=== PATIENT | female | born 1955 | race Caucasian/White ===

== ENCOUNTER → 2022-08-18 09:18 | Outpatient (BNVA) | payer MEDICARE, SELFPAY | PROVIDERS: Family Provider Family Medicine; PCP Family Medicine Adult Medicine; Visit Provider Family Medicine Adult Medicine | DX: I10 Essential (primary) hypertension (principal); Z68.41 Body mass index [BMI] 40.0-44.9, adult; E03.9 Hypothyroidism, unspecified; Z86.32 Personal history of gestational diabetes; M10.9 Gout, unspecified; G25.81 Restless legs syndrome; G47.33 Obstructive sleep apnea (adult) (pediatric); Z99.89 Dependence on other enabling machines and devices; G56.21 Lesion of ulnar nerve, right upper limb; M62.89 Other specified disorders of muscle; Z91.89 Other specified personal risk factors, not elsewhere classified; F41.9 Anxiety disorder, unspecified; F32.A Depression, unspecified; M19.90 Unspecified osteoarthritis, unspecified site; N39.46 Mixed incontinence | CPT/HCPCS: 80053; 80061; 83036; 84443; 85025 ==

== ENCOUNTER 2022-09-21 15:21 | Outpatient (RCR) | payer MEDICARE, SELFPAY | END 2022-10-10 23:59 | disposition home or self-care (01) | LOC: SPT 15:21 | PROVIDERS: Visit Provider Orthopaedic Surgery | DX: Z47.1 Aftercare following joint replacement surgery (principal); Z96.652 Presence of left artificial knee joint | CPT/HCPCS: 97110; 97161 ==

== ENCOUNTER 2022-10-11 06:00 | Outpatient (RCR) | payer MEDICARE, SELFPAY | END 2022-10-24 23:59 | disposition home or self-care (01) | LOC: SPT 06:00 | PROVIDERS: PCP Family Medicine Adult Medicine; Visit Provider Orthopaedic Surgery | DX: Z47.1 Aftercare following joint replacement surgery (principal); Z96.652 Presence of left artificial knee joint | CPT/HCPCS: 97110 ==

== ENCOUNTER → 2022-11-03 12:38 | Outpatient (BNVA) | payer MEDICARE, SELFPAY | PROVIDERS: PCP Family Medicine Adult Medicine; Visit Provider Surgery | DX: K21.9 Gastro-esophageal reflux disease without esophagitis (principal); Z12.11 Encounter for screening for malignant neoplasm of colon | CPT/HCPCS: 99203 ==

== ENCOUNTER 2023-01-12 05:39 | Day surgery (SDC) | payer MEDICARE, SELFPAY ==
[2023-01-12 06:19] VITALS: BMI 42.9
[2023-01-12 06:23] VITALS: BP 135/81; PULSE 89; RESP 18; TEMP 36.1; O2SAT 97
--- NOTE | 2023-01-12 06:34 | W.PM.OPSFHP ---
Same Day Surgery H&P Indication for Procedure/HPI DATE OF PROCEDURE: January 12, 2023 CHIEF COMPLAINT/INDICATIONFOR SURGICAL PROCEDURE: reflux PREOP DIAGNOSIS: GERD and encounter for screening of colorectal cancer PLANNED PROCEDURE: Operation Date: 01/12/23 07:00 Proposed Procedures p [id number] egd [id number] colon K21.9,Z12.11(Not Applicable) - Phani Islas MD s Colonoscopy(Not Applicable) - Phani Islas MD Medications/Allergies* Allergies/Adverse Reactions Allergy/AdvReac Type Severity Reaction Status Date / Time No Known Allergies Allergy Unverified 01/10/23 09:26 Pertinent History/Comorbid Conditions* Medical History (Updated 12/02/22 @ 14:06 by Kurt Chaudhry MD) Allergic rhinitis due to allergen Anxiety and depression At high risk for complicated grieving BMI 40.0-44.9, adult Chronic GERD CPAP (continuous positive airway pressure) dependence Cubital tunnel syndrome on right Dyslipidemia Gout HTN (hypertension) with goal to be determined Hypothyroid Left otitis externa MICHELLE (obstructive sleep apnea) Osteoarthritis Participant in health and wellness plan Pre-diabetes Psoas syndrome RLS (restless legs syndrome) Urinary incontinence, mixed Surgical History (Updated 12/02/22 @ 11:42 by Kutr Chaudhry MD) H/O neck surgery H/O thyroidectomy H/O: knee surgery History of back surgery History of carpal tunnel surgery History of cholecystectomy Hx of colonoscopy Hx of hysterectomy Social History Smoking and tobacco/nicotine status: never used tobacco/nicotine Second hand smoke exposure: No Alcohol intake: current Alcohol intake frequency: holidays/special occasions only Alcohol type: other Substance/Drug Use: never Pertinent Exam Findings alert, oriented x 3, clear to auscultation bilaterally and regular rate & rhythm Recommendations Surgery/Procedure today Coding Level of Care Code Acute Code for Chg Fwd Diagnoses
[2023-01-12] MEDS: sodium chloride 0.9% 1,000 ML 30 ML IV (06:41)
--- NOTE | 2023-01-12 06:49 | P.ANESASSM_ITS ---
Pre-Anesthetic Assessment Height/Weight: Height 1.63 m Weight 113.398 kg Temp Pulse Resp BP Pulse Ox O2 Del Method 97.0 F L 89 18 135/81 97 Room Air 01/12/23 06:23 01/12/23 06:23 01/12/23 06:23 01/12/23 06:23 01/12/23 06:23 01/12/23 06:23 Preop Diagnosis: GERD and encounter for screening of colorectal cancer Operation Date: 01/12/23 07:00 Proposed Procedures p [id number] egd [id number] colon K21.9,Z12.11(Not Applicable) - Phani Islas MD s Colonoscopy(Not Applicable) - Phani Islas MD Familial anesthetic complications: N/V Was Beta Pooja taken within 24 hours: N/A Was Clonidine taken within 24 hours: N/A Last intake: Intake Last Liquid Date 01/11/23 Last Liquid Time 23:00 Last Solid Date 01/10/23 Last Solid Time 18:00 Social No alcohol and No tobacco Exam alert, oriented x 3, clear to auscultation bilaterally and regular rate & rhythm Airway Submandibular: within normal limits Cervical ROM: within normal limits Mallampati: Class II Dentition: false History/ROS No significant history except as noted and No significant complaints Pulmonary Sleep Apnea (Uses CPAP) CV/HEM Hypertension Previously blocked ureter Hepatic None reported GI Gastroesophageal Reflux Disease Metabolic Morbid Obesity and Thyroid Disease (Thyroid cancer) [facility] [place] Osteoarthritis/DJD Lower back surgery Neuropsych Anxiety and Depression Anesthetic Plan ASA status: 3 Anesthesia: Anesthesia Evaluation, General and MAC Risk of > 500 ml blood loss (7ml/kg in children): No Medications/Allergies Home Medications Medication Instructions Recorded Confirmed Last Taken Type allopurinol 300 mg tablet 300 mg PO DAILY #90 tabs 08/18/22 01/12/23 01/11/23 Rx furosemide 20 mg tablet 20 mg PO DAILY #30 tabs 08/18/22 01/12/23 Unknown Rx levothyroxine 150 mcg tablet 150 mcg PO DAILY #30 tabs 08/18/22 01/12/23 3 Rx (Synthroid) oxybutynin chloride 15 mg 15 mg PO DAILY urinary 08/18/22 01/12/23 01/11/23 Rx tablet,extended release 24 hr incontinence #30 tabs potassium chloride 10 mEq 10 meq PO BID #30 caps 08/18/22 01/12/23 01/11/23 Rx capsule,extended release pramipexole 0.5 mg tablet 0.5 mg PO .q hs leg movements #30 08/18/22 01/12/23 01/11/23 Rx tabs triamterene 37.5 1 tab PO DAILY #90 tabs 08/18/22 01/12/23 01/11/23 Rx mg-hydrochlorothiazide 25 mg tablet CPAP supplies #1 ea 09/15/22 12/02/22 Unknown Rx lisinopril 5 mg tablet 5 mg PO DAILY blood pressure #90 09/15/22 01/12/23 01/11/23 Rx tabs meloxicam 15 mg tablet 15 mg PO DAILY arthritis #30 tabs 10/14/22 01/12/23 01/11/23 Rx pantoprazole 40 mg tablet,delayed 40 mg PO BID acid reflux #180 tabs 10/18/22 01/12/23 01/11/23 Rx release loratadine 10 mg tablet 10 mg PO DAILY allergy/swelling 11/16/22 01/12/23 01/11/23 Rx #30 tabs estradiol 2 mg tablet (Estrace) 2 mg PO DAILY #90 tabs 11/17/22 01/12/23 01/11/23 Rx bupropion HCl 200 mg tablet,12 hr 200 mg PO [facility] Mental Health #90 12/21/22 01/12/23 01/11/23 Rx sustained-release tabs Allergies Allergy/AdvReac Type Severity Reaction Status Date / Time No Known Allergies Allergy Unverified 01/10/23 09:26 Current Medications Generic Name Dose Route Start Last Admin Trade Name Freq PRN Reason Stop Dose Admin Sodium Chloride 1,000 mls @ 30 mls/hr 01/12/23 06:00 01/12/23 06:41 Sodium Chloride 0.9% IV 30 mls/hr .Q24H ZHANG Administration PFS Anesthesia Medical History (Updated 12/02/22 @ 14:06 by Kurt Chaudhry MD) Allergic rhinitis due to allergen Anxiety and depression At high risk for complicated grieving BMI 40.0-44.9, adult Chronic GERD CPAP (continuous positive airway pressure) dependence Cubital tunnel syndrome on right Dyslipidemia Gout HTN (hypertension) with goal to be determined Hypothyroid Left otitis externa MICHELLE (obstructive sleep apnea) Osteoarthritis Participant in health and wellness plan Pre-diabetes Psoas syndrome RLS (restless legs syndrome) Urinary incontinence, mixed Surgical History (Updated 12/02/22 @ 11:42 by Kurt Chaudhry MD) H/O neck surgery H/O thyroidectomy H/O: knee surgery History of back surgery History of carpal tunnel surgery History of cholecystectomy Hx of colonoscopy Hx of hysterectomy Social History (Updated 08/18/22 @ 08:52 by Barbi Child LPN) Smoking and tobacco/nicotine status: never used tobacco/nicotine Second hand smoke exposure: No Alcohol intake: current Alcohol intake frequency: holidays/special occasions only Alcohol type: other Substance/Drug Use: never Data Anesthesia Cardiac Studies: No Data to Display
[2023-01-12 07:33] LABS: Potassium 3.5 mmol/L (3.5-5.1)
[2023-01-12 09:25] VITALS: BP 153/78; PULSE 89; RESP 12; TEMP 36.9; O2SAT 96
[2023-01-12 09:40] VITALS: BP 130/93; PULSE 80; RESP 16; O2SAT 99
[2023-01-12 09:55] VITALS: BP 148/80; PULSE 81; RESP 18; O2SAT 100
--- NOTE | 2023-01-12 10:15 | ANE.PACU2 ---
Inpatient post-anesthesia follow up: Airway intact: Yes Vital signs: Temperature 98.5 F Pulse Rate 81 Respiratory Rate 18 Blood Pressure 148/80 Pulse Oximetry 100 Oxygen Delivery Me thod Room Air Oxygen Flow Rate Fraction of Inspir ed Oxygen Hydration adequate: Yes Nausea and vomiting: No Pain level: 1 Mental status: Baseline
== END 2023-01-12 10:15 | disposition home or self-care (01) ==
PROVIDERS: Anesthesiology; PCP Family Medicine Adult Medicine; Visit Provider Surgery
PROC: 0DJ08ZZ Inspection of Upper Intestinal Tract, Via Natural or Artificial Opening Endoscopic (ICD-10-PCS; CPT 43235; principal; 2023-01-12 07:00)
PROC: 0DJD8ZZ Inspection of Lower Intestinal Tract, Via Natural or Artificial Opening Endoscopic (ICD-10-PCS; CPT 45378; 2023-01-12 07:00)
DX: Z12.11 Encounter for screening for malignant neoplasm of colon (principal); K21.9 Gastro-esophageal reflux disease without esophagitis; E78.5 Hyperlipidemia, unspecified; I10 Essential (primary) hypertension; E03.9 Hypothyroidism, unspecified; G47.33 Obstructive sleep apnea (adult) (pediatric); K64.0 First degree hemorrhoids; E66.01 Morbid (severe) obesity due to excess calories; Z68.41 Body mass index [BMI] 40.0-44.9, adult; Z85.850 Personal history of malignant neoplasm of thyroid
CPT/HCPCS: 43239; 84132; 88305; 88342; G0121; J2371; J2704; J7030

== ENCOUNTER → 2023-01-30 08:00 | Outpatient (BNVA) | payer MEDICARE, SELFPAY | PROVIDERS: PCP Family Medicine Adult Medicine; Visit Provider Surgery | DX: Z09 Encounter for follow-up examination after completed treatment for conditions other than malignant neoplasm (principal) | CPT/HCPCS: 99213 ==